=== PATIENT | female | born 1990 | race Two or more races ===

== ENCOUNTER 2024-01-12 10:10 | Outpatient (CLI) | payer OTHER | END 2024-01-12 10:15 | disposition home or self-care (01) | LOC: PRENATAL 10:10 | PROVIDERS: ATTEND Obstetrics & Gynecology Maternal & Fetal Medicine | DX: O36.80X0 Pregnancy with inconclusive fetal viability, not applicable or unspecified (principal); O26.859 Spotting complicating pregnancy, unspecified trimester; Z36.82 Encounter for antenatal screening for nuchal translucency; Z3A.13 13 weeks gestation of pregnancy ==

== ENCOUNTER 2024-05-29 11:58 | Outpatient (CLI) | payer OTHER ==
[~2024-05-29] VITALS: Ht 170.2 cm; Wt 75.3 kg
[2024-05-29] MEDS ORDERED: PRENATABS RX T1 EACH PO (12:13)
[2024-05-29 12:41] LABS: PH,URINE 7.5 (5.0-8.0); URINE APPEARANCE Turbid; URINE BILIRRUBIN Negative (NEGATIVE); URINE COLOR Yellow; URINE GLUCOSE Negative (NEGATIVE); URINE KETONE Negative (NEGATIVE); URINE LEUKOCYTE Trace; URINE NITRATE Negative; URINE PROTEIN Negative (NEGATIVE); URINE UROBILINOGEN 0.2 E.U./dl
[2024-05-29 12:42] LABS: HEMATOCRIT 31.9 % (36.0-45.00); MEAN CELL VOLUME 90.3 fL (80.00-100.00); MEAN CORPUSCULAR HEMOGLOBIN 31.1 pg (27.00-32.0); MEAN CORPUSCULAR HGB CONC 34.5 g/dl (32.0-36.0); PLATELET COUNT 226 K/uL (150-450); RED BLOOD COUNT 3.53 M/uL (4.00-6.00); RED CELL DISTRIBUTION WIDTH 13.1 % (11.5-14.5)
[2024-05-29 12:44] LABS: URINE CAST 3.81 uL (0.0-1.40); URINE EPITHELIAL CELLS 60.6 uL (0.0-38.8); URINE WBC 93.2 uL (0.0-23.2)
[2024-05-29 13:01] LABS: URINE EPITHELIAL CELLS 0-4 /HPF
[2024-05-29 13:02] LABS: URINE CRYSTALS MODERATE /HPF
[2024-05-29] MEDS ORDERED: MORPHINE SULFATE 4 MG/ML CARTRIDGE IV ONE (16:30)
[2024-05-29] MEDS ORDERED: TAMSULOSIN HCL 0.4 MG CAP PO SCH (16:30)
[2024-05-29] MEDS ORDERED: PROMETHAZINE HCL 50 MG/ML AMPUL IM ONE ×2 (18:23→18:45)
[2024-05-29] MEDS ORDERED: PROMETHAZINE HCL 25 MG/ML AMPUL IM ONE (18:30)
[2024-05-29] MEDS ORDERED: CEFAZOLIN SODIUM 1,000 MG VIAL ONE (21:28)
[2024-05-29] MEDS ORDERED: CEFAZOLIN SODIUM 1,000 MG VIAL IV STA (21:39)
[2024-05-30] MEDS ORDERED: CEFAZOLIN SODIUM 1,000 MG VIAL IV SCH (02:00)
[2024-05-30 13:09] LABS: URINE BLOOD TRACES
== END 2024-05-30 14:33 | disposition home or self-care (01) ==
LOC: OBS/DEL 11:58
PROVIDERS: Obstetrics & Gynecology; ATTEND Specialist
DX: O23.43 Unspecified infection of urinary tract in pregnancy, third trimester (principal); N39.0 Urinary tract infection, site not specified; Z3A.33 33 weeks gestation of pregnancy; R10.2 Pelvic and perineal pain; R30.0 Dysuria; N20.1 Calculus of ureter

== ENCOUNTER 2024-07-18 05:44 | Inpatient (IN) | payer OTHER ==
[~2024-07-18] VITALS: Ht 170.2 cm; Wt 77.1 kg
[2024-07-18] VITALS (9 sets, daily range): BP systolic 110–129; BP diastolic 65–82
[~2024-07-18 05:44] MED LIST: PRENATABS RX T1 EACH PO
[2024-07-18 08:15] LABS: PH,URINE 6.5 (5.0-8.0); URINE APPEARANCE Turbid; URINE BILIRRUBIN Negative (NEGATIVE); URINE BLOOD Negative; URINE COLOR Yellow; URINE GLUCOSE Negative (NEGATIVE); URINE KETONE Negative (NEGATIVE); URINE LEUKOCYTE Negative; URINE NITRATE Negative; URINE PROTEIN Negative (NEGATIVE); URINE UROBILINOGEN 0.2 E.U./dl
[2024-07-18 08:18] LABS: HEMATOCRIT 36.2 % (36.0-45.00); HEMOGLOBIN 12.2 g/dL (12.0-15.00); MEAN CELL VOLUME 90.9 fL (80.00-100.00); MEAN CORPUSCULAR HEMOGLOBIN 30.8 pg (27.00-32.0); MEAN CORPUSCULAR HGB CONC 33.8 g/dl (32.0-36.0); PLATELET COUNT 224 K/uL (150-450); RED BLOOD COUNT 3.98 M/uL (4.00-6.00); RED CELL DISTRIBUTION WIDTH 13.8 % (11.5-14.5)
[2024-07-18 08:21] LABS: URINE BACTERIA 132.2 uL (0.0-1933); URINE WBC 6.4 uL (0.0-23.2)
[2024-07-18] MEDS ORDERED: OXYTOCIN 500 ML IV SCH (08:45)
[2024-07-18 08:56] LABS: URINE RBC 0.7 uL (0.0-20.8)
[2024-07-18] MEDS ORDERED: RINGERS SOLUTION,LACTATED 1,000 ML IV SCH (09:00)
[2024-07-18 09:04] LABS: ALBUMIN 2.8 gm/dL (3.4-5.0); BILIRUBIN TOTAL 0.27 mg/dL (0.3-1.2); CALCIUM 9.3 mg/dL (8.5-10.1); CREATININE SERUM 0.5 mg/dL (0.55-1.02); GFR 142.98; GLOBULINA 4.2 G/DL (2.4-3.5); POTASSIUM 4.67 mEq/L (3.5-5.1)
[2024-07-18 09:18] LABS: INR < 0.93; PARTIAL THROMBOPLASTIN TIME 25.5 SECONDS (22.0-34.0); PROTHROMBIN TIME 10.1 SECONDS (9.0-11.5)
[2024-07-18] MEDS ORDERED: MEPERIDINE HCL/PF 50 MG/ML VIAL IV ONE (12:45)
[2024-07-18] MEDS ORDERED: PROMETHAZINE HCL 25 MG/ML AMPUL IV ONE (12:45)
[2024-07-18] MEDS ORDERED: IBUprofen 600 MG TABLET PO SCH (19:30)
[2024-07-18] MEDS ORDERED: CHLORHEXIDINE GLUCONATE 120 ML BOTTLE TOP ONE (19:45)
[2024-07-18] MEDS ORDERED: ERYTHROMYCIN BASE OPHT 1GM EACH TUBE OP ONE (19:45)
[2024-07-18] MEDS ORDERED: LIDOCAINE HCL 1% 10ML VIAL IJ ONE (19:45)
[2024-07-18] MEDS ORDERED: OXYTOCIN 1,000 ML IV ONE (19:45)
[2024-07-19 05:00] VITALS: BP 135/79
[2024-07-19 08:10] VITALS: BP 117/74
[2024-07-19] MEDS ORDERED: DOCUSATE CALCIUM 240 MG CAPSULE PO SCH (09:00)
[2024-07-19 09:43] LABS: HEMATOCRIT 28.7 % (36.0-45.00); HEMOGLOBIN 9.5 g/dL (12.0-15.00); MEAN CELL VOLUME 90.2 fL (80.00-100.00); MEAN CORPUSCULAR HEMOGLOBIN 29.8 pg (27.00-32.0); MEAN CORPUSCULAR HGB CONC 33.3 g/dl (32.0-36.0); PLATELET COUNT 210 K/uL (150-450); RED BLOOD COUNT 3.18 M/uL (4.00-6.00)
[2024-07-19] MEDS ORDERED: IBUprofen 600 MG TABLET PO SCH (12:00)
[2024-07-19 13:25] VITALS: BP 117/80
[2024-07-19 15:57] VITALS: BP 107/73
[2024-07-19] MEDS ORDERED: FERROUS SULFATE 325 MG TABLET.EC PO SCH (17:00)
[2024-07-20 01:27] VITALS: BP 99/64
[2024-07-20 10:17] VITALS: BP 132/83; O2SAT 99
== END 2024-07-20 12:48 | disposition home or self-care (01) | DRG 768 ==
LOC: LDR 05:44 → OB/GYN 20:52
PROVIDERS: Obstetrics & Gynecology; ADMIT Specialist; ATTEND Specialist
PROC: 10E0XZZ Delivery of Products of Conception, External Approach (ICD-10-PCS; principal; 2024-07-18)
PROC: 0DQR0ZZ Repair Anal Sphincter, Open Approach (ICD-10-PCS; 2024-07-18)
PROC: 4A1HXCZ Monitoring of Products of Conception, Cardiac Rate, External Approach (ICD-10-PCS; 2024-07-18)
PROC: 0W8NXZZ Division of Female Perineum, External Approach (ICD-10-PCS; 2024-07-18)
DX: O70.21 Third degree perineal laceration during delivery, IIIa (principal); Z37.0 Single live birth; Z3A.40 40 weeks gestation of pregnancy; Z20.822 Contact with and (suspected) exposure to COVID-19